=== PATIENT | female | born 1980 | race Caucasian/White ===

== ENCOUNTER 2017-02-23 22:57 | Emergency (ER) | payer MEDICAID ==
[~2017-02-23] VITALS: Ht 157.5 cm; Wt 59.0 kg
[2017-02-24] MEDS ORDERED: TETANUS, DIPHTHERIA, PERTUSSIS VAC/PF 0.5ML (>7YR OLD) IM ONE (04:15)
[2017-02-24] MEDS ORDERED: LIDOCAINE HCL 1% 20ML VIAL (Pyxis) INJ INFIL ONE (04:15)
[2017-02-24] MEDS ORDERED: IBUPROFEN 800MG TABLET PO ONE (05:00)
[2017-02-24 05:54] VITALS: BP 118/77
== END 2017-02-24 05:57 | disposition home or self-care (01) ==
LOC: ER 23:45
DX: S61.213A Laceration without foreign body of left middle finger without damage to nail, initial encounter (principal); W26.0XXA Contact with knife, initial encounter; Y93.89 Activity, other specified; Y92.89 Other specified places as the place of occurrence of the external cause; Y99.8 Other external cause status
CPT/HCPCS: 12001; 99283; J3490; Z7610

== ENCOUNTER 2018-04-29 17:42 | Emergency (ER) | payer MEDICAID ==
[~2018-04-29] VITALS: Ht 152.4 cm; Wt 65.0 kg
[2018-04-30] MEDS ORDERED: ONDANSETRON HCL 4MG/2ML INJ IV STA (00:05)
[2018-04-30] MEDS ORDERED: MORPHINE SULFATE 4 MG/ML CPJ (NOT FOR IM USE) IV STA (00:05)
[2018-04-30] MEDS ORDERED: SODIUM CHLORIDE 0.9% 1,000 ML IV ONE (00:05)
[2018-04-30] MEDS ORDERED: FAMOTIDINE 20MG/2ML VIAL IV STA (00:05)
[2018-04-30 01:10] LABS: BASOPHILS % 0.2 % (0.0-2.0); EOSINOPHILS % 0.8 % (0.0-5.0); HEMATOCRIT. 33.7 % (36.0-48.0); HEMOGLOBIN. 10.8 g/dL (12.0-16.0); LYMPHOCYTES % 10.9 % (20.0-50.0); MEAN CORPUSCULAR HEMOGLOBIN 23.7 pg (28.0-32.0); MEAN CORPUSCULAR VOLUME 73.6 fL (81.0-99.0); MEAN PLATELET VOLUME 7.8 fl (7.4-10.4); MONOCYTES % 3.5 % (2.0-8.0); NEUTROPHILS % 84.6 % (40.0-76.0); PLATELET 418 x1000/uL (130-400); RED BLOOD CELL COUNT 4.58 mill/uL (4.2-5.4); RED CELL DISTRIBUTION WIDTH 18.5 % (11.6-14.6)
[2018-04-30 01:13] LABS: CHLORIDE 107 mEq/L (98-107)
[2018-04-30 02:05] VITALS: BP 122/76
== END 2018-04-30 02:40 | disposition home or self-care (01) ==
LOC: ER 17:42
DX: K29.00 Acute gastritis without bleeding (principal); K27.9 Peptic ulcer, site unspecified, unspecified as acute or chronic, without hemorrhage or perforation; R73.03 Prediabetes; D64.9 Anemia, unspecified; D72.829 Elevated white blood cell count, unspecified; Z98.890 Other specified postprocedural states; Z87.442 Personal history of urinary calculi
CPT/HCPCS: 36415; 76705; 80053; 81025; 83690; 85025; 93005; 96361; 96374; 96375; 99285; J2270; J2405; J3490; J7030

== ENCOUNTER 2018-09-30 00:27 | Emergency (ER) | payer MEDICAID, OTHER | END 2018-09-30 03:47 | disposition left against medical advice (07) | LOC: ER 03:38 | DX: R10.9 Unspecified abdominal pain (principal); Z53.21 Procedure and treatment not carried out due to patient leaving prior to being seen by health care provider ==

== ENCOUNTER 2018-11-11 22:32 | Emergency (ER) | payer MEDICAID ==
[~2018-11-11] VITALS: Ht 149.9 cm; Wt 96.0 kg
[2018-11-12] MEDS ORDERED: DIPHENHYDRAMINE 50MG/ML VIAL IV ONE (01:30)
[2018-11-12] MEDS ORDERED: SODIUM CHLORIDE 0.9% 1,000 ML IV ONE (01:30)
[2018-11-12 02:27] LABS: CHLORIDE 108 mEq/L (98-107)
[2018-11-12 02:32] LABS: HEMATOCRIT. 37.8 % (36.0-48.0); HEMOGLOBIN. 13.1 g/dL (12.0-16.0); MEAN CORPUSCULAR VOLUME 86.7 fL (81.0-99.0); MEAN PLATELET VOLUME 7.9 fl (7.4-10.4); PLATELET 323 x1000/uL (130-400); RED BLOOD CELL COUNT 4.36 mill/uL (4.2-5.4); RED CELL DISTRIBUTION WIDTH 16.1 % (11.6-14.6)
[2018-11-12 02:51] LABS: B-HCG QUANTITATIVE 20690 mIU/mL (<3)
[2018-11-12 03:22] LABS: PLATELET ESTIMATE NORMAL
[2018-11-12 03:57] LABS: CLARITY URINE CLOUDY (CLEAR); COLOR URINE YELLOW (YELLOW); KETONES URINE 3+ (NEGATIVE); LEUKOCYTE ESTERASE URINE 1+ (NEGATIVE); NITRITE URINE POSITIVE (NEGATIVE); OCCULT BLOOD URINE NEGATIVE (NEGATIVE); PH URINE 5.5 (4.5-8.0); PROTEIN URINE TRACE (NEGATIVE); SPECIFIC GRAVITY URINE 1.027 (1.005-1.030); UROBILINOGEN URINE 0.2 E.U./dL (0.2-1.0)
[2018-11-12 04:39] VITALS: BP 100/72
== END 2018-11-12 04:40 | disposition home or self-care (01) ==
LOC: ER 23:48
DX: O23.42 Unspecified infection of urinary tract in pregnancy, second trimester (principal); O99.89 Other specified diseases and conditions complicating pregnancy, childbirth and the puerperium; R19.7 Diarrhea, unspecified; R00.0 Tachycardia, unspecified; Z3A.18 18 weeks gestation of pregnancy; O09.522 Supervision of elderly multigravida, second trimester
CPT/HCPCS: 36415; 80053; 81003; 84702; 85025; 86850; 86900; 86901; 87077; 87086; 87186; 96361; 96374; 99283; J1200; J7030; Z7610

== ENCOUNTER 2018-12-11 14:20 | Observation (INO) | payer MEDICAID ==
[~2018-12-11] VITALS: Ht 152.4 cm; Wt 66.2 kg
[2018-12-11] MEDS ORDERED: PREN1TAB78 MT (15:13)
[2018-12-11] MEDS: ACETAMINOPHEN 500MG TABLET PO NR ×2 (15:24→15:43)
[2018-12-11] MEDS ORDERED: LACTATED RINGERS 1,000 ML IV SCH (16:30)
[2018-12-11 16:46] LABS: EOSINOPHILS % 1.1 % (0.0-5.0); HEMATOCRIT. 34.1 % (36.0-48.0); HEMOGLOBIN. 11.9 g/dL (12.0-16.0); LYMPHOCYTES % 21.7 % (20.0-50.0); MEAN CORPUSCULAR HEMOGLOBIN 31.5 pg (28.0-32.0); MEAN CORPUSCULAR VOLUME 90.3 fL (81.0-99.0); MEAN PLATELET VOLUME 7.9 fl (7.4-10.4); NEUTROPHILS % 69.2 % (40.0-76.0); PLATELET 311 x1000/uL (130-400); RED BLOOD CELL COUNT 3.78 mill/uL (4.2-5.4); RED CELL DISTRIBUTION WIDTH 15.3 % (11.6-14.6)
== END 2018-12-11 17:35 | disposition home or self-care (01) ==
LOC: 8 EST LDRP 14:20
PROVIDERS: ADMIT Obstetrics & Gynecology; ATTEND Obstetrics & Gynecology
DX: O26.892 Other specified pregnancy related conditions, second trimester (principal); R51 Headache; R42 Dizziness and giddiness; Z3A.24 24 weeks gestation of pregnancy
CPT/HCPCS: 36415; 82962; 85025; 96360; 99281; G0378; 96361

== ENCOUNTER 2018-12-15 11:37 | Observation (INO) | payer MEDICAID ==
[~2018-12-15 11:37] MED LIST: PREN1TAB78 MT
== END 2018-12-15 14:30 | disposition home or self-care (01) ==
LOC: 8 EST LDRP 11:37
PROVIDERS: ADMIT Obstetrics & Gynecology; ATTEND Obstetrics & Gynecology
DX: O26.892 Other specified pregnancy related conditions, second trimester (principal); R10.9 Unspecified abdominal pain; Z3A.23 23 weeks gestation of pregnancy
CPT/HCPCS: 99281; G0378

== ENCOUNTER 2018-12-24 01:39 | Observation (INO) | payer MEDICAID ==
[~2018-12-24] VITALS: Ht 152 cm; Wt 66.2 kg
[2018-12-24] MEDS ORDERED: ONDANSETRON HCL 4MG/2ML INJ IM NR (02:45)
[2018-12-24] MEDS ORDERED: DEXT 5%/LACTATED RINGERS 1,000 ML IV SCH (02:45)
[2018-12-24 03:40] LABS: CLARITY URINE CLEAR (CLEAR); COLOR URINE YELLOW (YELLOW); KETONES URINE NEGATIVE (NEGATIVE); LEUKOCYTE ESTERASE URINE TRACE (NEGATIVE); NITRITE URINE NEGATIVE (NEGATIVE); OCCULT BLOOD URINE NEGATIVE (NEGATIVE); PROTEIN URINE NEGATIVE (NEGATIVE); SPECIFIC GRAVITY URINE 1.008 (1.005-1.030); UROBILINOGEN URINE 0.2 E.U./dL (0.2-1.0)
[2018-12-24] MEDS ORDERED: FERROUS SULFATE (04:13)
[2018-12-24] MEDS ORDERED: PRENATAL VITAMINS (04:13)
== END 2018-12-24 04:46 | disposition home or self-care (01) ==
LOC: 8 EST LDRP 01:39
PROVIDERS: ADMIT Specialist; ATTEND Specialist
DX: O21.2 Late vomiting of pregnancy (principal); O26.892 Other specified pregnancy related conditions, second trimester; R10.9 Unspecified abdominal pain; R51 Headache; Z3A.24 24 weeks gestation of pregnancy
CPT/HCPCS: 36415; 80051; 81003; 99281; G0378; J2405; 96360; 96361; J7121

== ENCOUNTER 2019-01-22 13:34 | Observation (INO) | payer MEDICAID ==
[~2019-01-22] VITALS: Ht 144.8 cm; Wt 66.7 kg
[~2019-01-22 13:34] MED LIST changes: +FERROUS SULFATE; -PREN1TAB78 MT; +PRENATAL VITAMINS
[2019-01-22] MEDS ORDERED: CITRIC ACID/SODIUM CITRATE SOLN 30ML UDC PO ONE (14:30)
[2019-01-22 15:04] LABS: CLARITY URINE CLEAR (CLEAR); COLOR URINE YELLOW (YELLOW); KETONES URINE NEGATIVE (NEGATIVE); LEUKOCYTE ESTERASE URINE NEGATIVE (NEGATIVE); NITRITE URINE NEGATIVE (NEGATIVE); OCCULT BLOOD URINE NEGATIVE (NEGATIVE); PH URINE 6.5 (4.5-8.0); PROTEIN URINE NEGATIVE (NEGATIVE); SPECIFIC GRAVITY URINE 1.022 (1.005-1.030)
== END 2019-01-22 14:25 | disposition home or self-care (01) ==
LOC: 8 EST A/PP 13:34
PROVIDERS: ADMIT Obstetrics & Gynecology; ATTEND Obstetrics & Gynecology
DX: O26.893 Other specified pregnancy related conditions, third trimester (principal); R10.11 Right upper quadrant pain; Z3A.30 30 weeks gestation of pregnancy
CPT/HCPCS: 76705; 81003; 99281; G0378

== ENCOUNTER 2019-03-08 15:05 | Observation (INO) | payer MEDICAID ==
[~2019-03-08] VITALS: Ht 152.4 cm; Wt 69.4 kg
[2019-03-08] MEDS ORDERED: ACETAMINOPHEN 500MG TABLET PO NR (15:45)
[2019-03-08 16:07] LABS: CLARITY URINE CLEAR (CLEAR); COLOR URINE YELLOW (YELLOW); KETONES URINE NEGATIVE (NEGATIVE); LEUKOCYTE ESTERASE URINE NEGATIVE (NEGATIVE); NITRITE URINE NEGATIVE (NEGATIVE); OCCULT BLOOD URINE TRACE (NEGATIVE); PH URINE 6.5 (4.5-8.0); PROTEIN URINE NEGATIVE (NEGATIVE); SPECIFIC GRAVITY URINE 1.016 (1.005-1.030)
== END 2019-03-08 17:12 | disposition home or self-care (01) ==
LOC: 8 EST LDRP 15:05
PROVIDERS: ADMIT Obstetrics & Gynecology; ATTEND Obstetrics & Gynecology
DX: O26.893 Other specified pregnancy related conditions, third trimester (principal); R10.9 Unspecified abdominal pain; Z3A.36 36 weeks gestation of pregnancy
CPT/HCPCS: 76815; 76818; 81003; 99281; G0378

== ENCOUNTER 2019-04-05 23:05 | Observation (INO) | payer MEDICAID ==
[~2019-04-05] VITALS: Ht 152.4 cm; Wt 70.3 kg
[2019-04-06] MEDS ORDERED: FOLIC ACID (01:24)
== END 2019-04-06 01:40 | disposition home or self-care (01) ==
LOC: 8 EST LDRP 23:05
PROVIDERS: ADMIT Specialist; ATTEND Specialist
DX: O24.410 Gestational diabetes mellitus in pregnancy, diet controlled (principal); O62.9 Abnormality of forces of labor, unspecified; O26.893 Other specified pregnancy related conditions, third trimester; R10.9 Unspecified abdominal pain; M54.9 Dorsalgia, unspecified; Z98.891 History of uterine scar from previous surgery; Z3A.39 39 weeks gestation of pregnancy
CPT/HCPCS: 99281; G0378

== ENCOUNTER 2020-06-15 15:03 | Emergency (ER) | payer MEDICAID ==
[~2020-06-15] VITALS: Ht 152.4 cm; Wt 70.0 kg
[~2020-06-15 15:03] MED LIST changes: +FOLIC ACID
[2020-06-15 15:06] VITALS: BP 137/80
[2020-06-15 16:50] LABS: EOSINOPHILS % 1.3 % (0.0-5.0); HEMATOCRIT. 37.3 % (36.0-48.0); HEMOGLOBIN. 12.3 g/dL (12.0-16.0); LYMPHOCYTES % 24.4 % (20.0-50.0); MEAN CORPUSCULAR HEMOGLOBIN 25.7 pg (28.0-32.0); MEAN CORPUSCULAR VOLUME 77.8 fL (81.0-99.0); MEAN PLATELET VOLUME 7.8 fl (7.4-10.4); MONOCYTES % 6.1 % (2.0-8.0); NEUTROPHILS % 67.2 % (40.0-76.0); PLATELET 338 x1000/uL (130-400); RED BLOOD CELL COUNT 4.79 mill/uL (4.2-5.4); RED CELL DISTRIBUTION WIDTH 16.9 % (11.6-14.6)
[2020-06-15 16:58] LABS: CHLORIDE 101 mEq/L (98-107)
[2020-06-15 17:09] LABS: B-HCG QUANTITATIVE 783 mIU/mL (<3)
== END 2020-06-15 20:47 | disposition home or self-care (01) ==
LOC: ER 15:03
DX: O20.9 Hemorrhage in early pregnancy, unspecified (principal); O99.281 Endocrine, nutritional and metabolic diseases complicating pregnancy, first trimester; R73.9 Hyperglycemia, unspecified; O09.521 Supervision of elderly multigravida, first trimester; Z3A.01 Less than 8 weeks gestation of pregnancy
CPT/HCPCS: 36415; 76801; 80053; 84702; 85025; 86850; 86900; 93005; 99285

== ENCOUNTER 2025-01-31 15:13 | Emergency (ER) | payer OTHER, MEDICAID ==
[~2025-01-31] VITALS: Ht 157.5 cm; Wt 68.0 kg
[2025-01-31 15:19] VITALS: O2SAT 98
[2025-01-31] MEDS: ACETAMINOPHEN 500MG TABLET PO ONE (16:00)
[2025-01-31 16:16] LABS: BASOPHILS % 0.8 % (0.0-2.0); EOSINOPHILS % 1.3 % (0.0-5.0); HEMATOCRIT. 38.8 % (36.0-48.0); HEMOGLOBIN. 13.0 g/dL (12.0-16.0); LYMPHOCYTES % 22.3 % (20.0-50.0); MEAN PLATELET VOLUME 8.7 fl (7.4-10.4); MONOCYTES % 7.6 % (2.0-8.0); NEUTROPHILS % 68.0 % (40.0-76.0); PLATELET 324 x1000/uL (130-400); RED BLOOD CELL COUNT 5.06 mill/uL (4.2-5.4); RED CELL DISTRIBUTION WIDTH 30.0 % (11.6-14.6)
[2025-01-31 16:19] LABS: COLOR URINE YELLOW (YELLOW); GLUCOSE URINE 1+ (NEGATIVE); KETONES URINE NEGATIVE (NEGATIVE); LEUKOCYTE ESTERASE URINE NEGATIVE (NEGATIVE); NITRITE URINE NEGATIVE (NEGATIVE); OCCULT BLOOD URINE NEGATIVE (NEGATIVE); PH URINE 7.0 (4.5-8.0); PROTEIN URINE TRACE (NEGATIVE); SPECIFIC GRAVITY URINE 1.018 (1.005-1.030); UROBILINOGEN URINE 1.0 E.U./dL (0.2-1.0)
[2025-01-31 16:19] LABS: ADD RBC MORPHOLOGY YES
[2025-01-31 16:22] LABS: CREATININE 0.5 mg/dL (0.6-1.0); UREA NITROGEN BLOOD 8 mg/dL (9-23)
[2025-01-31 16:24] LABS: ASPARTATE AMINOTRANSFERASE 14 IU/L (<34); BILIRUBIN DIRECT < 0.1 mg/dL (<=3.0); BILIRUBIN TOTAL 0.3 mg/dL (0.1-1.0); PROTEIN TOTAL 6.2 g/dL (6.0-8.3)
[2025-01-31 16:26] LABS: INR 1.0
[2025-01-31 16:37] LABS: BACTERIA URINE NONE SEEN; CLARITY URINE SL HAZY (CLEAR); RBC URINE NONE SEEN /hpf (0-2); SQUAMOUS EPITHELIAL CELL URINE 2+ /lpf (RARE/1+); WBC URINE 0-2 /hpf (0-2)
[2025-01-31 16:38] LABS: B-HCG QUANTITATIVE 53198 mIU/mL (<6)
[2025-01-31 16:59] LABS: PLATELET ESTIMATE NORMAL
[2025-01-31 19:19] VITALS: BP 118/77; PULSE 92; RESP 17; TEMP 37.1; O2SAT 99
== END 2025-01-31 19:35 | disposition home or self-care (01) ==
LOC: ER 15:13
DX: O99.891 Other specified diseases and conditions complicating pregnancy (principal); O26.891 Other specified pregnancy related conditions, first trimester; O24.111 Pre-existing type 2 diabetes mellitus, in pregnancy, first trimester; Z3A.11 11 weeks gestation of pregnancy; Z98.890 Other specified postprocedural states
CPT/HCPCS: 36415; 76801; 80048; 80076; 81003; 84702; 85025; 99284

== ENCOUNTER 2025-04-19 21:41 | Emergency (ER) | payer OTHER, MEDICAID ==
[~2025-04-19] VITALS: Ht 162.6 cm; Wt 73.0 kg
[2025-04-19 21:45] VITALS: TEMP 36.7; O2SAT 99
[2025-04-19] MEDS: MAGNESIUM/ALUMINUM HYDROXIDE/SIMETHICONE 30ML UDC PO ONE (22:00)
[2025-04-19] MEDS: ONDANSETRON 4MG ODT PO ONE (22:00)
[2025-04-19 23:23] VITALS: BP 132/86; PULSE 66; RESP 18; O2SAT 100
== END 2025-04-19 23:30 | disposition home or self-care (01) ==
LOC: ER 21:41
DX: O21.2 Late vomiting of pregnancy (principal); Z3A.23 23 weeks gestation of pregnancy
CPT/HCPCS: 99283; Q0162